=== PATIENT | female | born 1955 | race Caucasian/White ===

== ENCOUNTER 2017-07-14 05:24 | Day surgery (SDC) | payer MEDICAID ==
[2017-07-13 11:58] LABS: HEMATOCRIT 39.2 % (36.0-48.0); HEMOGLOBIN 12.4 g/dL (12-16); MCH 29.2 pg (26.0-34.0); MCHC 31.6 g/dL (31.0-37.0); MCV 92.2 fL (80.0-100.0); MEAN PLATELET VOLUME 9.3 fL (7.4-10.4); RBC 4.25 10x6/uL (4.00-5.40); RDW 15.1 % (11.5-14.5)
[~2017-07-14 05:24] MED LIST: ADDERALL 30 MG30 MG PO; BUTRANS1 EAC2 TRANSDERM; ESTRACE2 MG PO; LISINOPRIL5 MG PO; NEURONTIN 300300 MG PO; PHENERGAN25 M1 PO; PROZAC10 MG PO; ULTRAM50 MG PO
[2017-07-14 10:27] VITALS: BP 144/74; BMI 22.6
--- NOTE | 2017-07-14 15:45 | NUR ---
PT ON REN FRAME WITH PRONE VIEW POSITIONER FOR THE HEAD. FOAM ROLLS IN AXILLA.
--- NOTE | 2017-07-14 15:51 | NUR ---
CELIA INITIAL COUNT ONLY PRIOR TO PT ENTERING RM
--- NOTE | 2017-07-14 17:14 | NUR ---
CONSULTED ANETHESIA REGARDING PERSISTENT NAUSEA AFTER ZOFRAN 4MG IV GIVEN. GIVEN VERBAL ORDERS PER DR WESTON TO GIVEN PHENERGAN 12.5MG IV X1 IN PACU. MAY REPEAT PHENERGAN 12.5MG IV X1 IN PACU IF WARRANTED. WILL CONTINUE TO MONITOR. AT 1710 REPORTS NO SIGNS OF NAUSEA.
--- NOTE | 2017-07-14 17:30 | NUR ---
PT REC'D TO ROOM VIA STRETCHER FROM PACU. AWAKE, ALERT. RESTING SUPINE. INCISION TO LOWER MID BACK C/D/I WITH DERMABOND. ICE CHIPS PROVIDED.
--- NOTE | 2017-07-14 18:00 | NUR ---
PT TOLERATED FULL LIQ DIET.
--- NOTE | 2017-07-14 18:04 | NUR ---
FULL LIQ TRAY PROVIDED.
--- NOTE | 2017-07-14 18:20 | NUR ---
PT UP TO VOID, VOIDED WITHOUT DIFFICULTY.
--- NOTE | 2017-07-14 18:30 | NUR ---
D/C INSTRUCTIONS EXPLAINED TO PT. VOICED UNDERSTANDING. COPIES OF ALL GIVEN, WELL WRITTEN RX FOR PERCOCET [address] KURTZ.
--- NOTE | 2017-07-14 18:40 | NUR ---
D/C'D HOME VIA W/C TO PRIVATE CAR.
--- NOTE | 2017-07-21 10:55 | OP ---
PATIENT NAME: PRADIP GONZALEZ MEDICAL RECORD: [id number] [facility] DATE: SURGEON: ASIF KURTZ MD DATE OF OPERATION: 07/14/2017 PREOPERATIVE DIAGNOSIS: Lumbar spinal stenosis at L3-4 and L4-5, right. POSTOPERATIVE DIAGNOSIS: Lumbar spinal stenosis at L3-4 and L4-5, right. PROCEDURES: Lumbar laminotomy, medial facetectomy and foraminotomy at L3-4 and L4-5, right with METRx retractor. DESCRIPTION OF TECHNIQUE: After induction of general endotracheal anesthesia, the patient was rolled prone on a Aristides frame. Lumbar spine was prepped and draped in usual sterile fashion. Fluoroscopic x-ray and spinal needle localized at L4-5 interspace on the right side. A stab incision was carried out with a #11 blade. Series of dilators were used to advance a METRx retractor to the L4-5 interspace on the right side. The level was confirmed with fluoroscopic x-ray. A Midas Rodolfo drill and microscope were used to perform a laminotomy, medial facetectomy and foraminotomy at L4-5 on the right. Hypertrophied ligamentum flavum was removed with Cloward rongeurs. Following this, the dura was decompressed well. Next, a laminotomy was carried out superiorly to the L3-4 interspace. The wounds were irrigated with copious amounts of Ancef irrigant solution. The fascia was closed with 2-0 Vicryl suture, the subdermal layer was closed with 3-0 Vicryl and skin with Dermabond adhesive. The patient was taken in good condition and taken to recovery. All counts were reported as correct. Estimated blood loss was minimal. TRANSINT:[id number] Voice Confirmation ID: [id number] DOCUMENT ID: [id number] 07/17/2017 Edited to fill in blank, dmm. ASIF KURTZ MD at 1055 CC: [id number] DICTATION DATE: 07/14/171929 MANAGER ART: 07/14/172023 [facility] 07/14/17 [place] [address]
== END 2017-07-14 18:48 | disposition home or self-care (01) ==
LOC: D.OPS 05:24 → D.PAN 07:30 → D.OPS 09:10
PROVIDERS: Anesthesiology
DX: M48.061 Spinal stenosis, lumbar region without neurogenic claudication (principal); Z01.812 Encounter for preprocedural laboratory examination

== ENCOUNTER → 2018-07-06 17:53 | Outpatient (CLI) | payer MEDICAID | END | disposition home or self-care (01) | LOC: D.MAMMO 06-15 15:00 | DX: Z12.31 Encounter for screening mammogram for malignant neoplasm of breast (principal) ==